=== PATIENT | female | born 1950 | race Caucasian/White ===

== ENCOUNTER 2020-12-04 01:05 | Emergency (ER) | payer MEDICARE, OTHER ==
[2020-12-04 01:58] LABS: BASOPHIL 0.3 % (0-2); EOSINOPHIL 0.3 % (0-7); HCT 40.7 % (37.0-47.0); HGB 13.5 g/dl (12.5-16.0); LYMPHOCYTE 10.4 % (15-48); MCH 31.1 pg (25.0-31.0); MCHC 33.2 g/dL (32.0-36.0); MCV 93.8 fL (78.0-100.0); MONOCYTE 9.3 % (0-12); MPV 11.2 fL (6.0-9.5); NEUTROPHIL 79.4 % (41-80); NRBC 0; PLT 275 K/uL (150-400); RBC 4.34 M/uL (4.20-5.40); RDW 11.5 % (11.5-14.0); WBC 14.5 K/uL (4.0-10.5)
[2020-12-04 02:21] LABS: ALBUMIN 3.6 g/dL (3.4-5.0); BILIRUBIN - TOTAL 0.6 mg/dL (0.2-1.0); BUN/CREAT RATIO (CALC) 19.5 RATIO; CREATININE 0.77 mg/dL (0.51-0.95); GLOBULIN (CALCULATION) 3.5 g/dL; POTASSIUM 3.6 mmol/L (3.5-5.1); TOTAL PROTEIN 7.1 g/dL (6.4-8.2)
[2020-12-04] MEDS ORDERED: AUGMENTIN 875-1 EACH PO (04:17)
[2020-12-04] MEDS ORDERED: METRONIDAZOLE500 MG PO (04:17)
== END 2020-12-04 04:24 | disposition home or self-care (01) ==
LOC: FER 01:05
PROVIDERS: Emergency Medicine
DX: K57.32 Diverticulitis of large intestine without perforation or abscess without bleeding (principal); I10 Essential (primary) hypertension; F17.200 Nicotine dependence, unspecified, uncomplicated; Z79.899 Other long term (current) drug therapy
CPT/HCPCS: 36415; 80053; 83690; 85025; J1956; Q9967